=== PATIENT | male | born 1985 | race Two or more races ===

== ENCOUNTER 2019-05-17 11:33 | Inpatient (IN) | payer SELFPAY ==
[~2019-05-17] VITALS: Ht 152.4 cm; Wt 50.5 kg
[2019-05-17] MEDS ORDERED: ONDANSETRON HCL 4MG/2ML INJ IV STA (12:15)
[2019-05-17] MEDS ORDERED: SODIUM CHLORIDE 0.9% 1,000 ML IV ONE ×2 (12:15→12:21)
[2019-05-17] MEDS ORDERED: KETOROLAC 30MG/ML VIAL IV STA (12:21)
[2019-05-17] MEDS ORDERED: LORAZEPAM 2MG/ML CPJ IV ONE (12:30)
[2019-05-17] MEDS ORDERED: FOLIC ACID 1 MG, THIAMINE HCL 100 MG, MVI, ADULT NO.1 10 ML in DEXTROSE 5% WATER 1,000 ML IV ONE ×4 (12:30)
[2019-05-17 13:38] LABS: BASOPHILS % 0.7 % (0.0-2.0); EOSINOPHILS % 0.6 % (0.0-5.0); LYMPHOCYTES % 24.9 % (20.0-50.0); MEAN CORPUSCULAR HEMOGLOBIN 18.5 pg (28.0-32.0); MEAN PLATELET VOLUME 7.6 fl (7.4-10.4); MONOCYTES % 7.5 % (2.0-8.0); NEUTROPHILS % 66.3 % (40.0-76.0); PLATELET 481 x1000/uL (130-400); RED BLOOD CELL COUNT 2.33 mill/uL (4.7-6.1); RED CELL DISTRIBUTION WIDTH 23.7 % (11.6-14.6)
[2019-05-17 13:46] LABS: CHLORIDE 100 mEq/L (98-107)
[2019-05-17 13:48] LABS: HEMOGLOBIN. 4.3 g/dL (14.0-18.0)
[2019-05-17 13:49] LABS: HEMATOCRIT. 16.3 % (42.0-52.0)
[2019-05-17 13:53] LABS: ETHANOL BLOOD 273 mg/dL
[2019-05-17 14:07] LABS: PLATELET ESTIMATE INCREASED
[2019-05-17] MEDS ORDERED: PANTOPRAZOLE SODIUM 40 MG/VIAL IV ONE (14:15)
[2019-05-17] MEDS ORDERED: ONDANSETRON HCL 4MG/2ML INJ IV PRN (16:45)
[2019-05-17] MEDS ORDERED: OCTREOTIDE ACETATE 50 MCG/ML 1ML IV SCH (16:46)
[2019-05-17] MEDS ORDERED: PANTOPRAZOLE SODIUM 40 MG/VIAL IV SCH (17:00)
[2019-05-17] MEDS: OCTREOTIDE 1,000 MCG in SODIUM CHLORIDE 0.9% 98 ML IV PRN (17:41)
[2019-05-17 18:01] LABS: PROTHROMBIN TIME 10.3 sec (9.6-11.0)
[2019-05-17 21:26] LABS: FERRITIN 5 ng/mL (22-322)
[2019-05-17 21:37] LABS: HEPATITIS B SURFACE ANTIGEN NEGATIVE
[2019-05-17 21:38] LABS: VITAMIN B12 SERUM 820 pg/mL (211-911)
[2019-05-17 22:07] LABS: HEPATITIS A AB IGM NEGATIVE (NEGATIVE)
[2019-05-17 22:15] VITALS: BP 113/74
[2019-05-17 23:47] VITALS: BP 113/74
[2019-05-18] VITALS (11 sets, daily range): BP systolic 93–119; BP diastolic 55–99
[2019-05-18] MEDS: SODIUM CHLORIDE 0.9% 1,000 ML IV SCH ×5 (00:01→21:51)
[2019-05-18] MEDS: ACETAMINOPHEN 325MG TABLET PO PRN (02:32)
[2019-05-18 02:39] LABS: CLARITY URINE CLEAR (CLEAR); COLOR URINE DARK YELLOW (YELLOW); KETONES URINE 1+ (NEGATIVE); LEUKOCYTE ESTERASE URINE NEGATIVE (NEGATIVE); NITRITE URINE NEGATIVE (NEGATIVE); OCCULT BLOOD URINE NEGATIVE (NEGATIVE); PH URINE 6.5 (4.5-8.0); PROTEIN URINE NEGATIVE (NEGATIVE); SPECIFIC GRAVITY URINE 1.013 (1.005-1.030)
[2019-05-18 02:48] LABS: *AMPHETAMINES SCREEN URINE NEGATIVE (NEGATIVE); *BARBITURATES SCREEN URINE NEGATIVE (NEGATIVE); *BENZODIAZEPINES SCREEN URINE NEGATIVE (NEGATIVE); *COCAINE SCREEN URINE NEGATIVE (NEGATIVE); METHADONE URINE SCREEN NEGATIVE (NEGATIVE); OPIATES URINE SCREEN NEGATIVE (NEGATIVE)
[2019-05-18 02:49] LABS: CANNABINOID URINE SCREEN NEGATIVE (NEGATIVE); PHENCYCLIDINE URINE SCREEN NEGATIVE (NEGATIVE)
[2019-05-18] MEDS ORDERED: PANTOPRAZOLE SODIUM 40 MG/VIAL IV SCH (09:00)
[2019-05-18] MEDS ORDERED: BACTERIOSTATIC SODIUM CHLORIDE 0.9% 30ML VIAL IJ ONE (11:28)
[2019-05-18 12:19] LABS: BASOPHILS % 0.9 % (0.0-2.0); EOSINOPHILS % 2.3 % (0.0-5.0); HEMATOCRIT. 24.5 % (42.0-52.0); HEMOGLOBIN. 7.3 g/dL (14.0-18.0); LYMPHOCYTES % 18.2 % (20.0-50.0); MEAN CORPUSCULAR HEMOGLOBIN 22.9 pg (28.0-32.0); MEAN CORPUSCULAR VOLUME 76.4 fL (80.0-94.0); NEUTROPHILS % 72.6 % (40.0-76.0); PLATELET 235 x1000/uL (130-400); RED BLOOD CELL COUNT 3.21 mill/uL (4.7-6.1); RED CELL DISTRIBUTION WIDTH 21.8 % (11.6-14.6)
[2019-05-18 12:26] LABS: CHLORIDE 108 mEq/L (98-107)
[2019-05-18] MEDS: OCTREOTIDE 1,000 MCG in SODIUM CHLORIDE 0.9% 98 ML IV PRN (13:32)
[2019-05-18] MEDS ORDERED: MIDAZOLAM HCL 5 MG/5 ML VIAL IV PRN (16:36)
[2019-05-18] MEDS ORDERED: FENTANYL CITRATE/PF 50MCG/ML 2ML VIAL ONE (16:37)
[2019-05-18] MEDS ORDERED: MIDAZOLAM HCL 5 MG/5 ML VIAL ONE (16:37)
[2019-05-18] MEDS ORDERED: FENTANYL CITRATE/PF 50MCG/ML 2ML VIAL IV PRN (16:37)
[2019-05-18] MEDS ORDERED: FAMOTIDINE 20MG/2ML VIAL IV ONE (17:52)
[2019-05-18] MEDS ORDERED: FAMOTIDINE 20MG/2ML VIAL IV NR (18:00)
[2019-05-18] MEDS: PANTOPRAZOLE SODIUM 40 MG/VIAL IV SCH (21:51)
[2019-05-19] VITALS: BP 114/76
[2019-05-19 04:00] VITALS: BP 120/91
[2019-05-19] MEDS: SODIUM CHLORIDE 0.9% 1,000 ML IV SCH (06:51)
[2019-05-19 08:00] VITALS: BP 99/64
[2019-05-19] MEDS: PANTOPRAZOLE SODIUM 40 MG/VIAL IV SCH ×2 (11:00→21:27)
[2019-05-19 12:00] VITALS: BP 117/87
[2019-05-19] MEDS: OCTREOTIDE 1,000 MCG in SODIUM CHLORIDE 0.9% 98 ML IV PRN (13:03)
[2019-05-19] MEDS: LORAZEPAM 0.5MG TABLET PO PRN (14:49)
[2019-05-19] MEDS: ACETAMINOPHEN 325MG TABLET PO PRN (14:50)
[2019-05-19 15:20] LABS: HEMATOCRIT 24.9 % (42.0-52.0); HEMOGLOBIN 7.5 g/dL (14.0-18.0)
[2019-05-19 16:00] VITALS: BP 102/66
[2019-05-19 20:00] VITALS: BP 120/88
[2019-05-19] MEDS: SUCRALFATE 1 G/10 ML UDC PO SCH (21:28)
[2019-05-19] MEDS: LACTULOSE 20G/30ML UDC PO SCH (21:28)
[2019-05-19] MEDS: ASCORBIC ACID 250 MG TABLET PO SCH (21:28)
[2019-05-20] VITALS: BP 126/94
[2019-05-20 04:00] VITALS: BP 128/91
[2019-05-20] MEDS: SODIUM CHLORIDE 0.9% 1,000 ML IV SCH (05:18)
[2019-05-20] MEDS: LACTULOSE 20G/30ML UDC PO SCH ×3 (06:08→21:59)
[2019-05-20] MEDS: SUCRALFATE 1 G/10 ML UDC PO SCH ×4 (06:08→21:59)
[2019-05-20 08:00] VITALS: BP 116/78
[2019-05-20] MEDS: PANTOPRAZOLE SODIUM 40 MG/VIAL IV SCH ×2 (08:58→21:59)
[2019-05-20] MEDS: FERROUS SULFATE 325MG TABLET PO SCH ×3 (08:59→18:02)
[2019-05-20] MEDS: ASCORBIC ACID 250 MG TABLET PO SCH ×2 (08:59→22:36)
[2019-05-20 12:00] VITALS: BP 98/63
[2019-05-20 16:00] VITALS: BP 104/73
[2019-05-20 20:00] VITALS: BP 110/66
[2019-05-20] MEDS: LORAZEPAM 0.5MG TABLET PO PRN (21:59)
[2019-05-21] VITALS (7 sets, daily range): BP systolic 100–115; BP diastolic 60–73
[2019-05-21] MEDS: SODIUM CHLORIDE 0.9% 1,000 ML IV SCH ×2 (01:28→20:16)
[2019-05-21] MEDS: FERROUS SULFATE 325MG TABLET PO SCH ×2 (08:17→13:23)
[2019-05-21] MEDS: THIAMINE HCL 100MG TABLET PO SCH (08:17)
[2019-05-21] MEDS: PANTOPRAZOLE SODIUM 40 MG/VIAL IV SCH ×2 (08:17→21:00)
[2019-05-21] MEDS: ASCORBIC ACID 250 MG TABLET PO SCH ×2 (08:17→21:28)
[2019-05-21] MEDS: SUCRALFATE 1 G/10 ML UDC PO SCH ×3 (08:23→21:28)
[2019-05-21] MEDS: LACTULOSE 20G/30ML UDC PO SCH ×3 (08:23→21:27)
[2019-05-21] MEDS: ACETAMINOPHEN 325MG TABLET PO PRN (10:37)
[2019-05-21] MEDS ORDERED: FERR325T23 PO (12:33)
[2019-05-21] MEDS ORDERED: PANT40TA4 MT (12:33)
[2019-05-21 17:21] LABS: BASOPHILS % 0.9 % (0.0-2.0); EOSINOPHILS % 10.8 % (0.0-5.0); HEMATOCRIT. 25.7 % (42.0-52.0); HEMOGLOBIN. 7.7 g/dL (14.0-18.0); LYMPHOCYTES % 21.1 % (20.0-50.0); MEAN CORPUSCULAR HEMOGLOBIN 23.2 pg (28.0-32.0); MEAN CORPUSCULAR VOLUME 77.5 fL (80.0-94.0); MEAN PLATELET VOLUME 7.8 fl (7.4-10.4); MONOCYTES % 10.6 % (2.0-8.0); NEUTROPHILS % 56.6 % (40.0-76.0); PLATELET 349 x1000/uL (130-400); RED BLOOD CELL COUNT 3.32 mill/uL (4.7-6.1); RED CELL DISTRIBUTION WIDTH 23.2 % (11.6-14.6)
[2019-05-21 17:41] LABS: PLATELET ESTIMATE NORMAL
[2019-05-21] MEDS: LORAZEPAM 0.5MG TABLET PO PRN (21:28)
[2019-05-22] VITALS: BP 108/74
[2019-05-22 04:00] VITALS: BP 103/61
[2019-05-22] MEDS: LACTULOSE 20G/30ML UDC PO SCH (06:59)
[2019-05-22] MEDS: SUCRALFATE 1 G/10 ML UDC PO SCH ×2 (06:59→12:20)
[2019-05-22 08:00] VITALS: BP 100/70
[2019-05-22] MEDS: PANTOPRAZOLE SODIUM 40 MG/VIAL IV SCH (08:17)
[2019-05-22] MEDS: THIAMINE HCL 100MG TABLET PO SCH (08:20)
[2019-05-22] MEDS: FERROUS SULFATE 325MG TABLET PO SCH ×2 (08:20→12:50)
[2019-05-22] MEDS: ACETAMINOPHEN 325MG TABLET PO PRN (08:20)
[2019-05-22] MEDS: ASCORBIC ACID 250 MG TABLET PO SCH (08:21)
[2019-05-22 12:00] VITALS: BP 105/65
== END 2019-05-22 13:10 | disposition home or self-care (01) | DRG 241 ==
LOC: ER 11:41 → 6WST 15:01 → EDBEDREQ 19:36 → ENRESERV 19:46 → CANRESERV 19:46 → EDBEDREQTM 20:21 → EDBEDREQSVC 20:21 → ENRESERV 20:54 → 6WST 23:31
PROVIDERS: ADMIT Family Medicine Adult Medicine; ATTEND Family Medicine Adult Medicine
PROC: 30233N1 Transfusion of Nonautologous Red Blood Cells into Peripheral Vein, Percutaneous Approach (ICD-10-PCS; principal; 2019-05-17)
PROC: 0DB68ZX Excision of Stomach, Via Natural or Artificial Opening Endoscopic, Diagnostic (ICD-10-PCS; 2019-05-18)
PROC: 0D758ZZ Dilation of Esophagus, Via Natural or Artificial Opening Endoscopic (ICD-10-PCS; 2019-05-18)
DX: K29.71 Gastritis, unspecified, with bleeding (principal); E46 Unspecified protein-calorie malnutrition; K22.2 Esophageal obstruction; K76.0 Fatty (change of) liver, not elsewhere classified; D62 Acute posthemorrhagic anemia; K70.10 Alcoholic hepatitis without ascites; E83.42 Hypomagnesemia; K20.9 Esophagitis, unspecified; D50.9 Iron deficiency anemia, unspecified; E01.0 Iodine-deficiency related diffuse (endemic) goiter; E87.6 Hypokalemia; F10.229 Alcohol dependence with intoxication, unspecified; F17.210 Nicotine dependence, cigarettes, uncomplicated; F10.239 Alcohol dependence with withdrawal, unspecified; K44.9 Diaphragmatic hernia without obstruction or gangrene; Y90.8 Blood alcohol level of 240 mg/100 ml or more; Z79.899 Other long term (current) drug therapy; Z59.0 Homelessness; Z68.21 Body mass index [BMI] 21.0-21.9, adult
CPT/HCPCS: 36415; 71045; 74176; 76700; 80053; 80076; 80305; 80320; 81003; 82140; 82270; 82607; 82728; 83540; 83550; 83735; 85014; 85018; 85025; 86705; 86709; 86803; 86850; 86900; 86920; 87340; 88305; 88313; 92610; 93005; 99285; C9113; J1885; J2060; J2250; J2354; J2405; J3010; J3411; J3490; J7030; J7050; J7070; P9016; G0480